=== PATIENT | female | born 2000 | race African-American/Black ===

== ENCOUNTER 2021-06-16 16:43 | Emergency (ER) | payer SELFPAY ==
[2021-06-16] MEDS ORDERED: Albuterol/Ipratropium 3.0-0.5 MG/3 ML Neb Soln NEB ONE (17:15)
== END 2021-06-16 18:01 | disposition home or self-care (01) ==
LOC: JP.ED 16:43
DX: J45.20 Mild intermittent asthma, uncomplicated (principal); J20.8 Acute bronchitis due to other specified organisms; Z72.0 Tobacco use; Z86.16 Personal history of COVID-19
CPT/HCPCS: 94640; 99282; 99284; J7620

== ENCOUNTER 2023-09-03 15:28 | Emergency (ER) | payer OTHER ==
[2023-09-03] MEDS: Albuterol/Ipratropium 3.0-0.5 MG/3 ML Neb Soln NEB STA (17:09)
== END 2023-09-03 17:40 | disposition home or self-care (01) ==
LOC: JP.ED 15:28
DX: J18.9 Pneumonia, unspecified organism (principal); F17.210 Nicotine dependence, cigarettes, uncomplicated; J45.909 Unspecified asthma, uncomplicated; Z79.899 Other long term (current) drug therapy; Z86.16 Personal history of COVID-19
CPT/HCPCS: 94640; 99284; J7620

== ENCOUNTER 2023-09-16 14:25 | Emergency (ER) | payer OTHER ==
[2023-09-16] MEDS: Sodium Chloride 0.9% 1,000 ML IV SCH (17:33)
[2023-09-16] MEDS: Ondansetron 4 MG/2 ML SDV IVPUSH ONE (17:33)
== END 2023-09-16 18:35 | disposition home or self-care (01) ==
LOC: JP.ED 14:25
DX: K52.9 Noninfective gastroenteritis and colitis, unspecified (principal); J45.909 Unspecified asthma, uncomplicated; Z86.16 Personal history of COVID-19; Z79.51 Long term (current) use of inhaled steroids; Z79.899 Other long term (current) drug therapy
CPT/HCPCS: 96361; 96374; 99283; J2405; J7030

== ENCOUNTER 2023-12-09 13:41 | Emergency (ER) | payer OTHER ==
[2023-12-09 14:27] LABS: BASOPHILS ABSOLUTE AUTO 0.05 K/uL (0.00-0.10); BASOPHILS PERCENT AUTO 0.3 % (0.1-1.3); EOSINOPHILS ABSOLUTE AUTO 0.21 K/uL (0.00-0.40); EOSINOPHILS PERCENT AUTO 1.4 % (0.0-5.4); HEMATOCRIT 40.4 % (34.3-46.0); HEMOGLOBIN 13.8 g/dL (11.2-15.5); IMMATURE GRAN PERCENT AUTO 0.7 % (0.0-0.7); LYMPHOCYTES ABSOLUTE AUTO 3.47 K/uL (0.8-3.3); LYMPHOCYTES PERCENT AUTO 22.9 % (11.4-47.7); MEAN CORPUSCULAR HEMOGLOBIN 30.6 pg (31.6-35.5); MEAN CORPUSCULAR HGB CONC 34.2 g/dL (31.6-35.5); MEAN CORPUSCULAR VOLUME 89.6 fL (81.4-99.0); MONOCYTES ABSOLUTE AUTO 1.21 K/uL (0.20-0.90); NEUTROPHILS ABSOLUTE AUTO 10.14 K/uL (1.0-7.6); NEUTROPHILS PERCENT AUTO 66.7 % (40.0-78.1); PLATELET COUNT,PLT 372 K/uL (130-375); RED BLOOD CELL COUNT 4.51 M/uL (3.77-5.24); WHITE BLOOD CELL COUNT,WBC 15.2 K/uL (3.2-11.0)
[2023-12-09 14:41] LABS: CALCIUM 9.6 mg/dL (8.5-10.1); CREATININE 0.7 mg/dL (0.6-1.0); EST CRCL DRUG DOSING (CG) 101.63 mL/min; MAGNESIUM 1.4 mg/dL (1.8-2.4); POTASSIUM,K 3.5 mmol/L (3.6-5.2)
[2023-12-09 14:43] LABS: ANION GAP 14.5 mmol/L (5.0-14.0)
[2023-12-09] MEDS: Magnesium Oxide 400 MG Tab PO ONE (15:48)
== END 2023-12-09 16:34 | disposition home or self-care (01) ==
LOC: JP.ED 13:41
DX: E83.42 Hypomagnesemia (principal); Z86.16 Personal history of COVID-19
CPT/HCPCS: 36415; 71046; 80048; 83735; 85025; 85379; 87635; 93005; 99285; A9270; U0002

== ENCOUNTER 2023-12-13 14:24 | Emergency (ER) | payer OTHER | END 2023-12-13 15:57 | disposition home or self-care (01) | LOC: JP.ED 14:24 | DX: J02.0 Streptococcal pharyngitis (principal); B95.0 Streptococcus, group A, as the cause of diseases classified elsewhere; J45.909 Unspecified asthma, uncomplicated; F17.200 Nicotine dependence, unspecified, uncomplicated; Z86.16 Personal history of COVID-19; Z79.899 Other long term (current) drug therapy | CPT/HCPCS: 87651-QW; 99284 ==

== ENCOUNTER 2024-05-27 04:14 | Emergency (ER) | payer OTHER ==
[2024-05-27] MEDS ORDERED: Diltiazem IR 30 MG Tab PO SCH (05:15)
== END 2024-05-27 05:13 | disposition home or self-care (01) ==
LOC: JP.ED 04:14
DX: K08.89 Other specified disorders of teeth and supporting structures (principal); J45.909 Unspecified asthma, uncomplicated; F17.210 Nicotine dependence, cigarettes, uncomplicated; Z86.16 Personal history of COVID-19; Z79.51 Long term (current) use of inhaled steroids; Z79.899 Other long term (current) drug therapy
CPT/HCPCS: 99282; 99283